=== PATIENT | male | born 1940 | race African-American/Black ===

== ENCOUNTER 2017-07-16 07:28 | Inpatient (IN) | payer OTHER ==
[~2017-07-16] VITALS: Ht 180.3 cm; Wt 121.2 kg
--- NOTE | ~2017-07-16 | HC ---
[facility] [place] [place] [address] CONSULTATION Name: EMILY ACE [facility] Room #: 359-P ADM IN M.R.#: [id number] Admission: 07/16/17 Attend Phys: Prudencio Aguero DO Discharge: Date of : 38 Report #: [id number] THIS REPORT FOR: //name// CC: Danis Gonzalez DATE OF SERVICE: 07/21/2017 CHIEF COMPLAINT: Right foot ulcers and osteomyelitis. HISTORY OF PRESENT ILLNESS: This is a 77-year-old gentleman with a history of diabetes and end-stage renal disease with a nonhealing foot ulcer, admitted to the hospital on 07/16/2017. PAST MEDICAL HISTORY: Significant for diabetes, hypertension, coronary artery disease, hyperlipidemia, parathyroid surgery, remote prostate cancer. SOCIAL HISTORY: The patient lives in a nursing facility. FAMILY HISTORY: Diabetes and hypertension. REVIEW OF SYSTEMS: As above. Orthopedics was consulted to evaluate his foot. MEDICATIONS: Cephalexin, atorvastatin, carvedilol, Byetta, insulin. PHYSICAL EXAMINATION: On examination of the patient's right foot, he has a large ulcer over his fifth metatarsal extending to his fourth metatarsal head region. He has a significant amount of edema. It is malodorous. Unable to detect a capillary refill. Also on exam, he has an ulcer over his medial heel, which is grade 2 superficial. LABORATORY DATA AND IMAGING: Apparently, the patient did have arteriogram yesterday with a tibioperoneal trunk peroneal artery stent placed. Cultures from his foot have noted gram-negative rods, Proteus mirabilis and skin mark. His last CBC notes a hemoglobin 9.6, hematocrit of 28.9, white count of 7.3. MRI scan notes osteomyelitis through the fourth and fifth metatarsal heads and proximal phalanges of the fourth and fifth toes. The heel notes the ulcer without changes of osteomyelitis. IMPRESSION: Right foot fourth and fifth metatarsal osteomyelitis. PLAN: Options were discussed at length with the patient. At this point, he is [facility] [address] [address] CONSULTATION Name: EMILY ACE [facility] Room #: 359-P [facility] IN M.R.#: [id number] Admission: 07/16/17 Attend Phys: Prudencio Aguero DO Discharge: Date of : 39 Report #: [id number] a candidate for a right foot fourth and fifth ray amputation. This was discussed with the patient. We will proceed in the near future. <ELECTRONICALLY SIGNED> By: Boo Samano MD 07/23/17 1531 0819 [id number] Boo Samano MD /nt
--- NOTE | ~2017-07-16 | HC ---
[facility] [place] [address] [place] [address] CONSULTATION Name: EMILY ACE [facility] Room #: 352-P ADM IN M.R.#: [id number] Admission: 07/16/17 Attend Phys: Prudencio Aguero DO Discharge: Date of : 39 Report #: [id number] THIS REPORT FOR: //name// CC: Danis Gonzalez DATE OF SERVICE: 07/17/2017 CHIEF COMPLAINT: Diabetic foot wound and infection of the right lower extremity. HISTORY OF PRESENT ILLNESS: This is a 77-year-old male patient, who I saw yesterday in the wound care clinic for the first time as a consultation. He has had ulceration to his right heel and right lateral foot for several months. He has some history of peripheral arterial disease as well as diabetes mellitus. The area has not been healing and there has been report of odor and drainage, and I was asked to see him with regard to wound care and these areas appeared to be infected and a probe to bone and hospitalization was felt appropriate for more aggressive evaluation and care. PAST MEDICAL HISTORY: Positive for diabetes mellitus, peripheral neuropathy, peripheral arterial disease, end-stage renal disease, requiring dialysis as well as history of coronary artery disease, hypertension, dyslipidemia, and history of glaucoma. He has a history of prostate cancer status post surgery and radiation. The patient lives in a prison, denies alcohol or tobacco use. FAMILY HISTORY: Noncontributory. REVIEW OF SYSTEMS: CONSTITUTIONAL: The patient denies fever, chills or weight loss. NEUROLOGICAL: The patient does complain of some lower extremity weakness. He has a motorized wheelchair. He does complain of neuropathy of the lower extremities. ENT: The patient denies earache, nasal drainage, or sore throat. CARDIOVASCULAR: The patient denies chest pain or palpitations or diaphoresis. PULMONARY: The patient denies cough or shortness of breath. GASTROINTESTINAL: The patient denies nausea, vomiting or abdominal pain. ORTHOPEDIC: The patient is aware of the ulceration on the right foot, but denies pain associated with this. Other systems in a 12-point review of systems are negative. PHYSICAL EXAMINATION: VITAL SIGNS: At this time include, pulse rate of 80, respiration rate 17, blood pressure 114/60, and temperature 98.1. [address] [address] CONSULTATION Name: EMILY ACE [facility] Room #: [address] [place] [address] IN M.R.#: [id number] Admission: 07/16/17 Attend Phys: Prudencio Aguero DO Discharge: Date of : 39 Report #: [id number] GENERAL: This is a chronically ill-appearing male patient, who appears to be in no distress. HEENT: Normocephalic clear. NECK: Supple. CHEST: Clear. HEART: Regular, bowel sounds present. EXTREMITIES: Examination of the lower extremities demonstrates diminished distal pulses. He has 2-3+ edema bilaterally. There is a very large area of ulceration with some necrotic tissue involving the right posterior medial heel. He also has a smaller ulceration involving the lateral aspect of the right foot at the fifth MTP region. There is foul smelling drainage and some discoloration that extends more medially on the plantar surface of the foot. I can palpate bone deep within the base and probed bone. I believe near the fifth MTP and possibly close to the fourth MTP as well. LABORATORY DATA: Includes sodium 133, potassium 5.0, chloride 98, CO2 of 25, BUN 48, creatinine 8.3, and glucose 155. Albumin is 2.4. CRP is quite elevated at 92.7. White blood cell count 9.4, hemoglobin 9.2, hematocrit 28.1 and platelet count 233,000. Differential is 58% neutrophils, 26 lymphocytes, 10 monocytes, 3 eosinophils, and sed rate is quite elevated at 130. TSH is also elevated at 16. Hemoglobin A1c is pending. Arterial Doppler of the lower extremity demonstrates monophasic flow suggestive of proximal area of stenosis in the distal aorta right iliac artery. Absent flow in the posterior tibial artery with high grade proximal stenosis, dampened flow in the dorsalis pedis and anterior tibial arteries as well noted. MRI of the foot is ordered and is pending. CLINICAL IMPRESSION: 1. Diabetic foot ulceration involving the right foot including the heel on the lateral fifth MTP region. 2. suspected underlying osteomyelitis. 3. Peripheral arterial disease. 4. End-stage renal disease, requiring hemodialysis. 5. Diabetes with peripheral neuropathy. RECOMMENDATIONS: At this point in time, I think would be appropriate with hopes that he would be amenable to percutaneous intervention. The patient likely has osteomyelitis, but we will await the MRI report. He will probably need surgical debridements including likely bony debridements; however, I think it would be appropriate to address his arterial inflow before any surgical injury would occur. The patient is being seen by Dr. Anne, cultures have been obtained from the wound base and are pending at this time. <ELECTRONICALLY SIGNED> By: Johny Leung MD 07/22/17 1419 1608 1358 Johny Leung MD /nt
--- NOTE | ~2017-07-16 | EKG ---
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
--- NOTE | ~2017-07-16 | H ---
[facility] [place] [place] [address] HISTORY AND PHYSICAL Name: EMILY ACE Room #: 407-P ADM IN M.R.#: [id number] Admission: 07/16/17 Attend Phys: Prudencio Aguero DO Discharge: Date of : 39 Report #: [id number] THIS REPORT FOR: //name// CC: Danis Gonzalez DATE OF SERVICE: 07/16/2017 CHIEF COMPLAINT: Nonhealing right foot ulcer. HISTORY OF PRESENT ILLNESS: The patient is a 77-year-old man with longstanding history of diabetes mellitus type 2, as well as multiple other medical problems, who was referred here from wound care clinic for inpatient treatment of nonhealing right lower extremity wound. The patient states that he has had the wound for last 3 months or so. He denies any pain. He has no fever, and does not have any systemic symptoms. The patient considers his diabetes is well controlled. He states that his hemoglobin A1c was 6.0 recently. He has peripheral neuropathy, and he has significantly diminished sensation in lower extremities. He denies peripheral vascular disease. The patient also has end-stage renal disease, and he is on hemodialysis 3 days a week, Mondays, Wednesdays and Fridays. He reports compliance to his dialysis regimen. The patient also has history of coronary artery disease. He had coronary artery bypass grafting surgery in 2000, as well as coronary artery stenting several times, most recent in November of this year. He is currently chest pain free. PAST MEDICAL HISTORY: 1. Diabetes mellitus type 2, treated with insulin, recent hemoglobin A1c reportedly 6%. 2. End-stage renal disease. 3. Coronary artery bypass grafting surgery in 2000, status post stents, most recent in November of this year. 4. Hypertension. 5. Dyslipidemia. 6. DJD. 7. Glaucoma. 8. Hypothyroidism, post-surgical 9. History of prostate cancer, status post surgery and radiation. CURRENT MEDICATIONS: Reviewed and documented in the patient's chart. [address] [address] HISTORY AND PHYSICAL Name: EMILY ACE [facility] Room #: [address] [place] [address] IN M.R.#: [id number] Admission: 07/16/17 Attend Phys: Prudencio Aguero DO Discharge: Date of : 39 Report #: [id number] SOCIAL HISTORY: The patient lives at the halfway. He does not smoke cigarettes and does not drink alcohol. FAMILY HISTORY: Reviewed and not pertinent to the patient's current condition. REVIEW OF SYSTEMS: As above in HPI section, all others negative. PHYSICAL EXAMINATION: GENERAL: The patient is an elderly man who is in no apparent distress. VITAL SIGNS: Currently is not available, and being obtained during this dictation. HEENT: Pupils are equal. Eye movements are normal. The patient has anicteric sclerae. NECK: Supple. Thyroid gland is absent surgically. The patient has no neck lymphadenopathy. He has no JVD. Carotid bruits are not appreciated. RESPIRATORY: Chest moves symmetrically with breathing. LUNGS: Clear to auscultation bilaterally. CARDIOVASCULAR: The patient has regular rhythm and rate. He has distant S1 and S2. I cannot auscultate murmurs, gallops or rubs. GASTROINTESTINAL: Abdomen is soft, slightly distended and nontender. Bowel sounds are present. MUSCULOSKELETAL: The patient has no joint deformities. Range of motion is normal. His right lower extremity is swollen, 3+ pitting edema. Left lower extremity has no swelling. Right foot is bandaged. NEUROLOGIC: The patient is alert and oriented x3. His examination is grossly nonfocal. SKIN: No skin lesions are seen, other than wound on the right foot, that is bandaged. LABS: No labs are available for review at this time. ASSESSMENT AND PLAN: 1. Chronic right lower extremity diabetic wound. We will obtain MRI, to evaluate for osteomyelitis. We will also obtain arterial Doppler. Infectious disease specialist and wound care team are consulted. Input is very much appreciated. 2. Right lower extremity swelling. Relatively new. Obtain Doppler ultrasound, to rule out deep venous thrombosis. 3. Diabetes mellitus type 2. Continue outpatient regimen and monitor blood sugars closely. 4. Hypertension. Acceptable control. Current blood pressure is 123/52. Heart rate is 76, respiration is 22, and temperature is 97.4. [address] [address] HISTORY AND PHYSICAL Name: EMILY ACE [facility] Room #: 407-P ADM IN M.R.#: [id number] Admission: 07/16/17 Attend Phys: Prudencio Aguero DO Discharge: Date of : 39 Report #: [id number] 5. End-stage renal disease. Church Official is consulted. The patient is on dialysis on Mondays, Wednesdays, and Fridays. <ELECTRONICALLY SIGNED> By: Nate Woods MD 07/17/17 1454 1828 01 Nate Woods MD /nt
--- NOTE | ~2017-07-16 | 2DMMODE ---
[facility] [address] [place] [address] 2 D/M-MODE ECHOCARDIOGRAM Name: EMILY ACE [facility] Room #: 352-P ADM IN M.R.#: [id number] Admission: 07/16/17 Attend Phys: Prudencio Aguero, Discharge: Date of : 38 Date of Service: 07/23/17 1015 Report #: [id number] THIS REPORT FOR: //name// APPROVED REPORT Study performed: 07/23/2017 08:45:01 EXAM: Comprehensive 2D, Doppler, and color-flow Echocardiogram Patient Location: Bedside Room #: [facility] Status: routine BSA: 2.38 HR: 83 bpm BP: 119/64 mmHg Other Information Study Quality: Fair Indications Diabetes Dyspnea CAD Hypertension/HDD 2D Dimensions IVC: 19.00 mm Volumes Left Atrial Volume (Systole) Single Plane 4CH: 37.44 mL Single Plane 2CH: 79.87 mL LA ESV Index: 25.00 mL/m2 Aortic Valve AoV Peak Charly.: 1.25 m/s AO Peak Gr.: 6.20 mmHg LVOT Max P.39 mmHg LVOT Max V: 0.77 m/s Mitral Valve E/A Ratio: 0.9 MVA Planimetry: 1587.32 mm2 MV Decel. Time: 199.24 ms MV E Max Charly.: 0.81 m/s MV A Charly.: 0.94 m/s MV PHT: 57.78 ms IVRT: 107.27 ms [facility] [address] [place] [address] 2 D/M-MODE ECHOCARDIOGRAM Name: EMILY ACE [facility] Room #: 352-P ADM IN M.R.#: [id number] Admission: 07/16/17 Attend Phys: Prudencio Aguero, Discharge: Date of : 38 Date of Service: 07/23/17 1015 Report #: [id number] Tricuspid Valve TR Peak Charly.: 2.52 m/s TR Peak Gr.: 25.33 mmHg PA Pressure: 30.00 mmHg Left Ventricle The left ventricle is normal size. Possible inferolateral wall hypokinesis. There is normal left ventricular wall thickness. Left ventricular systolic function is moderately decreased. LVEF is 45%. Grade I - abnormal relaxation pattern. Right Ventricle Right ventricle is not well visualized. Atria The left atrium size is normal. Right atrium is at the upper limits of normal. Aortic Valve The aortic valve is not well visualized. Aortic valve is calcified. No aortic regurgitation is present. There is no aortic valvular stenosis. Mitral Valve The mitral valve is normal in structure. Mild mitral regurgitation. No evidence of mitral valve stenosis. Tricuspid Valve The tricuspid valve is normal in structure. There is trace to mild tricuspid regurgitation. There is no pulmonary hypertension. Estimated [id number]. Pulmonic Valve Pulmonic valve is not well visualized. Great Vessels The aortic root is normal in size. IVC is normal in size and collapses >50% with inspiration. Pericardium There is no pericardial effusion. <Conclusion> Very limited study; suboptimal imaging Left ventricular systolic function possibly moderately decreased. [facility] [address] [place] [address] 2 D/M-MODE ECHOCARDIOGRAM Name: EMILY ACE [facility] Room #: 352-P ADM IN M.R.#: [id number] Admission: 07/16/17 Attend Phys: Prudencio Aguero, Discharge: Date of : 39 Date of Service: 07/23/17 1015 Report #: [id number] Possible inferolateral wall hypokinesis. LVEF is 45%. Grade I - abnormal relaxation pattern. The aortic valve is not well visualized. Aortic valve is calcified. There is no aortic valvular stenosis or insufficiency. The mitral valve is normal in structure. Mild mitral regurgitation. There is no pericardial effusion. <ELECTRONICALLY SIGNED> By: Marvin Flores MD, FACC 07/23/175 14 Marvin Flores MD, FACC /INF
--- NOTE | ~2017-07-16 | HC ---
[facility] [place] [address] [place] [address] CONSULTATION Name: EMILY ACE N[facility] Room #: 407-P ADM IN M.R.#: [id number] Admission: 07/16/17 Attend Phys: Prudencio Aguero DO Discharge: Date of : 39 Report #: [id number] THIS REPORT FOR: //name// CC: Danis Gonzalez MD INFECTIOUS DISEASE CONSULTATION ATTENDING PHYSICIAN: Nate Woods MD REASON FOR CONSULTATION: Right diabetic foot infection. HISTORY OF PRESENT ILLNESS: The patient is a 77-year-old -[place] man with long-standing history of diabetes mellitus and renal failure, on hemodialysis, who relates having had a right diabetic foot infection for the last 3 months. The patient tells me he has been to [facility] as well as [facility]. Apparently, he was visiting with the wound care clinic at [facility] yesterday and he is hospitalized with a necrotic foul-smelling right diabetic foot infection. 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 He does not know the name of his current carbon paper coating machine setter. The patient is a bit reluctant to get much information and he tells me he does not remember what he was advised to do about the right diabetic foot infection either at [facility], [facility] or at [facility]. PAST MEDICAL HISTORY: Diabetes mellitus for many years; end-stage renal disease, on hemodialysis through a left arm AV fistula; previous history of coronary artery bypass grafting in 2000 status post stenting; peripheral vascular disease requiring revascularization of right lower extremity; history of prostate cancer in 1996 or 2006, the patient unsure for which he had received surgery and radiation therapy. The patient had glaucoma as well as post-surgical hypothyroidism. SOCIAL HISTORY: Resides at the local prison. No tobacco. No alcohol. REVIEW OF SYSTEMS: The patient is rather reluctant to provide much information consequently ____ limited that. DRUG ALLERGIES: APPEARS TO BE A HISTORY OF PENICILLIN AND CODEINE ALLERGY WITH PENICILLIN, HE HAS HIVES. MEDICATIONS: The patient is currently on treatment with topical sodium hypochlorite, cinacalcet, cholecalciferol, docusate, fluticasone propionate, carvedilol, pantoprazole, levothyroxine, latanoprost ophthalmic drops, insulin [address] [address] CONSULTATION Name: EMILY ACE [facility] Room #: 407-P [facility] IN M.R.#: [id number] Admission: 07/16/17 Attend Phys: Prudencio Aguero DO Discharge: Date of : 39 Report #: [id number] lispro per sliding scale, insulin detemir, atorvastatin, pregabalin, p.r.n. glucose, glucagon. PHYSICAL EXAMINATION: GENERAL: A well-developed, obese man, not toxic looking. VITAL SIGNS: Temperature 98.1, pulse 80, respirations 17, BP 114/63, height 5 feet 11 inches, and weight 270 pounds. HEENMT: Pupils are reactive, arcus cornealis. Mouth: Upper and lower plates. NECK: Supple. LUNGS: Clear. HEART: S1 and S2. No gallop or murmur. ABDOMEN: Infraumbilical surgical scar, possible from prostate surgery, no masses or megaly. GENITOURINARY: Deferred. RECTAL: Deferred. EXTREMITIES: The dressings of the right foot were removed and he has foul-smelling ulcerations on the lateral aspect of right foot with necrotic tissue as well as a decubitus ulceration on the right heel. I do not feel bone in that area. Surgical scar, possibly revascularization of right lower extremity. 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 NEUROLOGIC: Grossly within normal limits. LABORATORY DATA: Sodium 132, potassium 5, BUN 48, creatinine 8.3, and glucose 155. Albumin 2.4 g/dL. WBC 9400; hemoglobin 9.2 g/dL; platelets 233,000; the white blood cell count differential was fairly normal yesterday. TSH elevated yesterday. Hemoglobin A1c pending. RADIOLOGY EVALUATION: Venous Doppler of lower extremities negative for DVT. Arterial Doppler of lower extremity revealed monophasic flow suggesting proximal ____ stenosis in the distal aorta or right iliac artery. Absent flow, posterior tibial artery suggesting posterior tibial artery occlusion or very high-grade proximal stenosis. Dampening flow, dorsalis pedis and anterior tibialis suggesting diffuse atherosclerosis. MRI foot is pending. ASSESSMENT: 1. Right diabetic foot infection with necrotic tissue and foul order, suspect anaerobic infection, must rule out osteomyelitis. 2. Significant peripheral vascular disease. 3. Diabetes mellitus with its multiple complications. 4. Renal failure, on hemodialysis. 5. Malnutrition. 6. Anemia of chronic disease. SUGGESTIONS: Recommend proceed with initial workup, which possibly already repeated and done at [facility], [facility] and [facility]. We will start vancomycin and meropenem. I believe the patient will benefit from a BKA, but I [facility] [address] [place] [address] CONSULTATION Name: EMILY ACE Room #: 407-P ADM IN M.R.#: [id number] Admission: 07/16/17 Attend Phys: Prudencio Aguero DO Discharge: Date of : 38 Report #: [id number] have not discussed this with him since I suspect the multiple hospitalizations ____ are related to the fact that he did not like the previous recommendation of amputation. We will discuss situation with Dr. Kali Gonzalez or Dr. Johny Leung whoever had seen this patient at the wound care center. Per Dr. Woods, thank you for requesting my suggestions in the care of your patient. <ELECTRONICALLY SIGNED> By: Rai Anne MD 07/19/17 0628 1141 0325 Rai Anne MD /nt
--- NOTE | ~2017-07-16 | HC ---
[facility] [address] [place] [address] CONSULTATION Name: EMILY ACE NESS Room #: 359-P [facility] IN M.R.#: [id number] Admission: 07/16/17 Attend Phys: Prudencio Aguero DO Discharge: 07/24/17 Date of : 38 Report #: [id number] THIS REPORT FOR: //name// CC: Danis Sepulvedahens PRIMARY PHYSICIAN: Danis Peacock MD REFERRAL PHYSICIAN: Prudencio Aguero DO REASON FOR REFERRAL: Abnormal chest CT. HISTORY OF PRESENT ILLNESS: The patient is a 77-year-old -[place] male who was admitted with a non-healing right foot ulcer. He was admitted on 07/16/2017. The patient had a chest x-ray, which showed subtle abnormalities. He then underwent a CT chest showing questionable nodule. A pulmonary consultation was requested. Since admission, the patient had undergone right iliac artery stent placement for stenosis, amputation involving the right fourth and fifth toes. He has been seen by infectious disease and wound care for his chronic wounds. He is felt to have osteomyelitis. Otherwise, he is awake and alert. Denies any dyspnea or chest pain. PAST MEDICAL HISTORY: Notable for end-stage renal disease, undergoing hemodialysis; diabetes mellitus type 2, coronary artery disease, status post coronary artery bypass surgery in 2000, status post stent placement, peripheral vascular disease as mentioned above, hypertension, dyslipidemia, degenerative joint disease, glaucoma, hypothyroidism, status post thyroidectomy, prostate cancer, undergoing surgery along with radiation therapy. ALLERGIES: CODEINE AND PENICILLIN, reactions not specified. MEDICATIONS: List reviewed. FAMILY HISTORY: Noncontributory. SOCIAL HISTORY: The patient resides in a longterm. There is no history of tobacco or alcohol use. REVIEW OF SYSTEMS: As mentioned above, otherwise notable for sedentary lifestyle due to his chronic bilateral foot wound. He is also dealing with debility and weakness. Otherwise, 10-point system review negative. PHYSICAL EXAMINATION: GENERAL: He is awake and alert, in no apparent distress. [facility] [address] [place] [address] CONSULTATION Name: EMILY ACE [facility] Room #: 359-[facility] IN M.R.#: [id number] Admission: 07/16/17 Attend Phys: Prudencio Aguero DO Discharge: 07/24/17 Date of : 38 Report #: [id number] VITAL SIGNS: Temperature is 98.4 degrees Fahrenheit, pulse is 82, respiratory rate is 20, blood pressure 127/68 mmHg, and saturation is 100%. HEENT: Normocephalic and atraumatic. NECK: Supple without any lymphadenopathy or thyromegaly. CHEST: Breath sounds are clear bilaterally without any rales or wheezes. CARDIOVASCULAR: Normal S1, S2. There are no murmurs or gallop. There is no JVD. There is no carotid bruit. Pulses are 2+/4+ bilaterally. ABDOMEN: Soft, nontender, no organomegaly or masses felt. GENITOURINARY: Deferred. RECTAL: Deferred. EXTREMITIES: No cyanosis or clubbing, 1+ edema is noted bilaterally. Both foot are dressed with wound dressing. LABORATORY DATA: CT chest shows increased pulmonary artery markings. Questionable peripheral mucus plugging seen in the left upper lobe area. Otherwise, the rest of the lung yung are unremarkable. There is mild wedge shaped atelectasis seen in the left lower lobe. Sodium 132, potassium 5.0, chloride 94, CO2 of 27, BUN is 33, and creatinine is 5.8. WBC 9900, hemoglobin is 7.4, platelets normal. Troponin 3.0. Arterial blood gas from 07/22/2017, revealed pH 7.38, pCO2 of 38, pO2 of 109. IMPRESSION: 1. Abnormal chest CT. Review of the chest CT and suggested abnormality likely suggests small mucus plugging. No evidence of lung nodule noted. Atelectasis is also noted in the left lower lobe. 2. Non-healing diabetic foot wounds status post surgery as mentioned above. 3. Peripheral artery disease, status post right iliac artery stent placement. 4. Recent acute respiratory insufficiency, resolved. 5. Coronary artery disease, status post coronary artery bypass surgery. 6. Diabetes mellitus type 2. 7. End-stage renal disease, on hemodialysis. 8. Hypothyroidism. 9. Hypertension. 10. Generalized debility and weakness due to non-healing foot ulcers. RECOMMENDATION: No further recommendation needed from pulmonary standpoint. Mucus plugging should resolve with increased activity, chest physiotherapy. Please call if there are any further problems. Otherwise, we will sign off. Thank you for the consultation. <ELECTRONICALLY SIGNED> By: Enmanuel Powell MD 07/27/17 1920 [id number] 33 Enmanuel Powell MD /nt
--- NOTE | ~2017-07-16 | O ---
[facility] [address] [place] [address] OPERATIVE REPORT Name: EMILY ACE [facility] Room #: 359-P ADM IN M.R.#: [id number] Admission: 07/16/17 Attend Phys: Prudencio Aguero DO Discharge: Date of : 38 Report #: [id number] THIS REPORT FOR: //name// CC: Danis Gonzalez DATE OF SERVICE: 07/21/2017 PREOPERATIVE DIAGNOSIS: Right foot fourth and fifth metatarsal osteomyelitis. POSTOPERATIVE DIAGNOSIS: Right foot fourth and fifth metatarsal osteomyelitis. PROCEDURE: Right foot fourth and fifth ray amputation. SURGEON: Boo Samano MD BANQUET STEWARD: LARISSA Garcia ANESTHESIA: Local MAC. ESTIMATED BLOOD LOSS: 10 mL DRAINS: None. COMPLICATIONS: None. DESCRIPTION OF PROCEDURE: The patient brought to the operating room where he had already been anesthetized with local anesthesia by anesthesiologist. His right lower extremity was then prepped and draped in a sterile manner. A racquet-shaped incision was then made about the fifth metatarsal laterally extending distally across the fourth and fifth toes. There was a large wound plantar laterally precluding an excellent flap; however, exposure of the fourth and fifth metatarsals was made with a Free elevator and a sagittal saw was then used to resect the fifth metatarsal along with its ____ toe and as well the fourth metatarsal with its ____ toe. Wound closure was difficult particularly distally and the third metatarsal was resected as well leaving the third toe. The wound was irrigated copiously and closed with 2-0 nylon suture leaving approximately 3-4 cm to be packed. The wound was then packed with sterile gauze and dressed. There were no complications from the procedure. The patient went to the recovery room without incident. <ELECTRONICALLY SIGNED> By: Boo Samano MD 07/23/17 1531 [id number] Boo Samano MD /nt
--- NOTE | ~2017-07-16 | HC ---
[facility] [address] [place] [address] CONSULTATION Name: EMILY ACE [facility] Room #: 352-P ADM IN M.R.#: [id number] Admission: 07/16/17 Attend Phys: Prudencio Aguero DO Discharge: Date of : 38 Report #: [id number] THIS REPORT FOR: //name// CC: Danis Gonzalez REASON FOR THE CONSULTATION: End-stage renal disease. REASON FOR THE PRESENTATION: Nonhealing foot ulcer. HISTORY OF PRESENT ILLNESS: The patient is a 77-year-old with diabetes mellitus, hypertension, end-stage renal disease, maintained on hemodialysis every Thursday, Thursday and Thursday. He dialyzes with [facility] in [place] with one of our group. He had been battling with the right foot ulcer for the last few months. Wound care has been following him. They advised him to come to the hospital for further evaluation and management. He has no fever. He tells me that he is taking p.o. antibiotics. He does not really recall the name of the antibiotics. From the renal perspective, the patient is a dialysis patient for another group and he dialyzes as I stated on Thursday, Thursday, Thursday, utilizing a left AV fistula. He was started on dialysis 6 years ago. His end-stage renal disease was attributed to be due to diabetes mellitus. PAST MEDICAL AND SURGICAL HISTORY: 1. End-stage renal disease. 2. Diabetes mellitus. 3. Hypertension. 4. Coronary artery disease, post coronary artery bypass graft. 5. Hyperlipidemia. 6. Parathyroid surgery. 7. Remote history of prostate cancer. SOCIAL HISTORY: He resides in a nursing facility. No drug or alcohol abuse. FAMILY HISTORY: He stated diabetes and hypertension runs in his family. REVIEW OF SYSTEMS: GENERAL: No fever or chills. CARDIOVASCULAR: No chest pain or palpitation. PULMONARY: No cough or hemoptysis. GASTROINTESTINAL: No nausea or vomiting. GENITOURINARY: Minimal urine. MUSCULOSKELETAL: Right foot ulcer. [facility] [address] [place] [address] CONSULTATION Name: EMILY ACE [facility] Room #: 352-P [facility] IN M.R.#: [id number] Admission: 07/16/17 Attend Phys: Prudencio Aguero DO Discharge: Date of : 38 Report #: [id number] MEDICATIONS: On presentation, the patient was on the followin. Cephalexin. 2. Atorvastatin. 3. Carvedilol. 4. Byetta. 5. Insulin. PHYSICAL EXAMINATION: GENERAL: Alert, oriented, in no apparent distress. VITAL SIGNS: Temperature 36.7, blood pressure 114/63. HEAD AND NECK: No jugular venous distention, no bruit, no thyromegaly. CHEST: Clear to auscultation bilaterally. CARDIOVASCULAR: Regular with no rub detected. ABDOMEN: Soft, nontender with no hepatosplenomegaly. LOWER EXTREMITIES: Essentially no edema. Dressing is applied on the right foot. I did not expose the wound. LABORATORY VALUES: Reviewed. Hemoglobin is 9.2. Chemistry from today revealed a BUN of 48 and a creatinine of 8.3. TSH was elevated at 16.1. ASSESSMENT, IMPRESSION AND PLAN: 1. End-stage renal disease. 2. Right lower extremity diabetic foot. 3. Diabetes mellitus. 4. Hypertension. 5. Hypothyroidism. 6. MRI is pending to evaluate for osteomyelitis. 7. Infectious Disease consultations. 8. Dialysis will be arranged every Thursday, Thursday and Thursday. 9. Continue with his blood sugar medications. 10. Continue with the blood pressure medications. 11. Further plans will be dictated after obtaining the MRI and ruling out osteomyelitis. <ELECTRONICALLY SIGNED> By: Odette Richard MD 07/22/17 1000 [id number] Odette Richard MD /nt
--- NOTE | ~2017-07-16 | S ---
[facility] [place] [address] [place] [address] SURGICAL PATH RPT PROCEDURE Name: EMILY ACE Room #: 359-P DIS IN M.R.#: [id number] Admission: 07/16/17 Date of : 38 Discharge: 07/24/17 Report #: [id number] Path Case #: [id number] PATHOLOGY REPORT COLLECTION DATE: 07/21/2017 RECEIVED DATE: 07/22/2017 SUBMITTING PHYS: Dr. Boo Samano OTHER PHYS: Dr. Kali Aguero SPECIMEN(S) RECEIVED: A.Right foot 4th and 5th ray amputation * * * * * * * * * * * * FINAL DIAGNOSIS: Right foot 4th and 5th ray, amputation: - Gangrenous necrosis associated with ulceration as well as marked acute inflammation extending into underlying subcutaneous tissues. - Bone surgical margin at 5th toe showing acute inflammation along with bone remodeling. - Bone surgical margin at 4th toe viable and unremarkable. - Viable squamous epithelium identified at skin surgical margin. (KM:edwin; 07/27/2017) PATHOLOGIST: Katarina Bowman M.D. REPORT ELECTRONICALLY SIGNED BY: Katarina Bowman M.D. DATE/TIME: 07/27/2017 16:07 * * * * * * * * * * * * GROSS PATHOLOGY: The specimen is received in formalin, labeled "Emily Ace and right foot fourth and fifth ray amputation" and consists of a transmetatarsal amputation of the fourth and fifth toes of right foot. The specimen measures 11.0 cm proximal-distal by 5.5 cm plantar-dorsal by 5.1 cm medial-lateral. The specimen is significant for a large ulcerated and necrotic lesion at the distal lateral aspect, extending towards the plantar aspect and measuring 6.2 x 4.4 cm. The lesion clears the nearest cutaneous margin by 0.3 cm or greater. There is hyperkeratotic skin at the distal lateral and plantar aspect that grossly involves the cutaneous margin. The remaining skin is pigmented with no other discrete lesions identified. The fourth and fifth metatarsal bone margins are roughened and slightly smooth. The bone margins are inked blue. The soft tissue/cutaneous margins are inked black. The toes are [address] [address] SURGICAL PATH RPT PROCEDURE Name: EMILY ACE [facility] Room #: 359-P [facility] IN M.R.#: [id number] Admission: 07/16/17 Date of : 38 Discharge: 07/24/17 Report #: [id number] Path Case #: [id number] . There is marked underlying soft tissue necrosis deep to the ulcerated lesion at lateral distal aspect. The bones of the fifth toe are markedly brittle. The bones of the fourth toe are solid. No soft tissue masses are identified. A1 bone margin of fifth toe, perpendicular, decal A2 bone margin of fourth toe, perpendicular, decal A3 transverse section of fifth toe, decal A4-A6 cutaneous margin (IRINA; 07/23/2017) CLINICAL HISTORY: Nonhealing diabetic foot ulcers INITIAL CPT CODE(S): A; 18468, 31347 Professional services performed under supervision of [facility] Radio Repairer at [address] [place] [address]. Technical services performed under supervision of [facility] at [address] [place] [address], [address] [address]. [facility] [address] [place] [address] PHONE: [phone] DIRECTOR: Fox Anderson M.D. * * * END OF REPORT * * *
[2017-07-16] MEDS ORDERED: FLONASE 0.05%50 MCG NASAL (18:14)
[2017-07-16] MEDS ORDERED: HYDROCODONE-AP1 EAC6 PO (18:15)
[2017-07-16] MEDS ORDERED: NOVOLOG100 UNIT/1 SUBQ (18:16)
[2017-07-16] MEDS ORDERED: LEVEMIR100 UNIT/1 SUBQ (18:17)
[2017-07-16] MEDS ORDERED: XALATAN2.5 ML OPHTHALMIC (18:18)
[2017-07-16] MEDS ORDERED: LEVOTHYROXINE200 MC1 PO (18:19)
[2017-07-16] MEDS ORDERED: PROTONIX40 M2 PO (18:20)
[2017-07-16] MEDS ORDERED: POVIDONE IODINE TOP (18:21)
[2017-07-16] MEDS ORDERED: LYRICA 50 MG50 MG PO (18:22)
[2017-07-16] MEDS ORDERED: COLACE100 MG PO (18:23)
[2017-07-16] MEDS ORDERED: DAKIN'S473 M1 TOP (18:24)
[2017-07-16] MEDS ORDERED: ARANESP 4040 MCG/0.4 SUBQ (18:25)
[2017-07-16] MEDS ORDERED: LIPITOR 20 MG T20 M1 PO (18:25)
[2017-07-16] MEDS ORDERED: CARVEDILOL6.25 MG PO (18:26)
[2017-07-16] MEDS ORDERED: VITAMIN D2000 UNIT PO (18:26)
[2017-07-16 18:27] VITALS: BP 123/52
[2017-07-16] MEDS ORDERED: SENSIPAR90 MG PO (18:27)
[2017-07-16] MEDS ORDERED: KEFLEX500 MG PO (18:31)
[2017-07-16 20:19] VITALS: BP 123/56
[2017-07-16 23:05] LABS: HEMATOCRIT 29.2 % (42.0-52.0); HEMOGLOBIN 9.5 gm/dL (14.0-18.0); MCH 30.7 pg (26.0-34.0); MCHC 32.7 g/dL (28.0-37.0); MCV 94.1 fL (80.0-100.0); RBC 3.1 mil/uL (4.50-6.00); RDW 17.4 % (10.5-14.5); WBC 9.5 thou/uL (4.0-11.0)
[2017-07-16 23:17] LABS: ALBUMIN 2.4 g/dL (3.4-5.0); CALCIUM 9.2 mg/dL (8.5-10.1); CREATININE 8.5 mg/dL (0.7-1.3); POTASSIUM 4.9 mmol/L (3.5-5.1); TOTAL BILIRUBIN 0.2 mg/dL (<0.1-1.0); TOTAL PROTEIN 7.5 g/dL (6.4-8.2)
[2017-07-17] VITALS (14 sets, daily range): BP systolic 109–171; BP diastolic 42–90
[2017-07-17 03:42] LABS: ABSOLUTE NEUTROPHILS 5.5 thou/uL (1.4-8.2); BASOPHILS 1.2 % (0.0-2.0); EOSINOPHILS 3.3 % (0.0-3.0); HEMATOCRIT 28.1 % (42.0-52.0); HEMOGLOBIN 9.2 gm/dL (14.0-18.0); LYMPHOCYTES 26.7 % (24.0-44.0); MCH 30.9 pg (26.0-34.0); MCHC 32.8 g/dL (28.0-37.0); MCV 94.1 fL (80.0-100.0); MONOCYTES 10.3 % (1.0-8.0); PLATELET COUNT 233 thou/uL (150-400); POLYS 58.5 % (36.0-66.0); RBC 2.99 mil/uL (4.50-6.00); RDW 17.4 % (10.5-14.5); WBC 9.4 thou/uL (4.0-11.0)
[2017-07-17 03:54] LABS: CALCIUM 9.3 mg/dL (8.5-10.1); CREATININE 8.3 mg/dL (0.7-1.3)
[2017-07-17 04:04] LABS: MANUAL DIFF NO
[2017-07-17 17:09] LABS: GLYCOHEMOGLOBIN (HGB A1C) 5.8 % (4.8-5.6)
[2017-07-18 05:40] LABS: ABSOLUTE NEUTROPHILS 4.2 thou/uL (1.4-8.2); BASOPHILS 0.8 % (0.0-2.0); HEMATOCRIT 29.2 % (42.0-52.0); HEMOGLOBIN 9.6 gm/dL (14.0-18.0); MANUAL DIFF NO; MCH 30.8 pg (26.0-34.0); MCHC 32.7 g/dL (28.0-37.0); MONOCYTES 11.3 % (1.0-8.0); PLATELET COUNT 216 thou/uL (150-400); POLYS 54.9 % (36.0-66.0); RBC 3.11 mil/uL (4.50-6.00); WBC 7.7 thou/uL (4.0-11.0)
[2017-07-18 05:50] LABS: CALCIUM 9.5 mg/dL (8.5-10.1); POTASSIUM 4.4 mmol/L (3.5-5.1)
[2017-07-18 06:02] LABS: CREATININE 6.9 mg/dL (0.7-1.3)
[2017-07-18 08:00] VITALS: BP 116/63
[2017-07-18 16:00] VITALS: BP 115/49
[2017-07-18 19:38] VITALS: BP 116/37
[2017-07-19 03:43] VITALS: BP 129/71
[2017-07-19 04:31] LABS: ABSOLUTE NEUTROPHILS 4.4 thou/uL (1.4-8.2); BASOPHILS 1.3 % (0.0-2.0); EOSINOPHILS 3.3 % (0.0-3.0); HEMATOCRIT 28.5 % (42.0-52.0); HEMOGLOBIN 9.2 gm/dL (14.0-18.0); LYMPHOCYTES 31.7 % (24.0-44.0); MCH 30.4 pg (26.0-34.0); MCHC 32.3 g/dL (28.0-37.0); MCV 94.3 fL (80.0-100.0); MONOCYTES 11.5 % (1.0-8.0); PLATELET COUNT 223 thou/uL (150-400); POLYS 52.2 % (36.0-66.0); RBC 3.03 mil/uL (4.50-6.00); RDW 17.2 % (10.5-14.5); WBC 8.3 thou/uL (4.0-11.0)
[2017-07-19 04:36] LABS: MANUAL DIFF NO
[2017-07-19 04:50] LABS: ALBUMIN 2.5 g/dL (3.4-5.0); CALCIUM 9.6 mg/dL (8.5-10.1); PHOSPHORUS 5.3 mg/dL (2.5-4.9); POTASSIUM 4.6 mmol/L (3.5-5.1)
[2017-07-19 04:53] LABS: CREATININE 8.5 mg/dL (0.7-1.3)
[2017-07-19 08:00] VITALS: BP 120/56
[2017-07-19 16:00] VITALS: BP 89/46
[2017-07-19 17:39] VITALS: BP 102/46
[2017-07-19 19:43] VITALS: BP 121/56
[2017-07-20 04:55] VITALS: BP 119/52
[2017-07-20 06:19] VITALS: BP 119/52
[2017-07-20 08:29] LABS: ABSOLUTE NEUTROPHILS 3.1 thou/uL (1.4-8.2); BASOPHILS 1.4 % (0.0-2.0); EOSINOPHILS 4.5 % (0.0-3.0); HEMATOCRIT 28.9 % (42.0-52.0); HEMOGLOBIN 9.6 gm/dL (14.0-18.0); LYMPHOCYTES 41.3 % (24.0-44.0); MCH 31.1 pg (26.0-34.0); MCHC 33.1 g/dL (28.0-37.0); MCV 93.9 fL (80.0-100.0); MONOCYTES 10.4 % (1.0-8.0); PLATELET COUNT 233 thou/uL (150-400); POLYS 42.4 % (36.0-66.0); RBC 3.08 mil/uL (4.50-6.00); RDW 17.4 % (10.5-14.5); WBC 7.3 thou/uL (4.0-11.0)
[2017-07-20 08:35] LABS: MANUAL DIFF NO
[2017-07-20 08:40] LABS: CALCIUM 9.1 mg/dL (8.5-10.1)
[2017-07-20 08:47] LABS: CREATININE 10.5 mg/dL (0.7-1.3)
[2017-07-20 20:03] VITALS: BP 109/51
[2017-07-21] VITALS (7 sets, daily range): BP systolic 87–124; BP diastolic 45–58
[2017-07-21 06:23] LABS: HEMATOCRIT 27.6 % (42.0-52.0); MCH 30.5 pg (26.0-34.0); MCHC 32.6 g/dL (28.0-37.0); MCV 93.8 fL (80.0-100.0); RBC 2.95 mil/uL (4.50-6.00); RDW 17.6 % (10.5-14.5)
[2017-07-21 06:39] LABS: CALCIUM 9.5 mg/dL (8.5-10.1); POTASSIUM 5.4 mmol/L (3.5-5.1)
[2017-07-21 06:40] LABS: CREATININE 8.8 mg/dL (0.7-1.3)
[2017-07-22] VITALS (7 sets, daily range): BP systolic 110–132; BP diastolic 51–63
[2017-07-22 07:49] LABS: ABG SAMPLE TYPE ARTERIAL; BE(vivo) -5.2 mmol/L (-2 to +3); HCO3 21.1 mmol/L (22.0-26.0); LACTATE 7.26 mmol/L (0.5-2.0); O2(CT) 9.1 mL/dL (15.0-23.0); O2Hb 63.5 % (92.0-98.0); PCO2 44.4 mmHg (35.0-45.0); PO2 38.1 mmHg (80.0-100.0); pH 7.294 (7.360-7.450); sO2 66.1 % (92.0-98.0); tCO2 22.4 mmol/L (24.0-30.0)
[2017-07-22 07:50] LABS: STICK SITE R.RADIAL
[2017-07-22 09:11] LABS: ABG SAMPLE TYPE ARTERIAL; BE(vivo) -2.1 mmol/L (-2 to +3); HCO3 22.6 mmol/L (22.0-26.0); LACTATE 2.07 mmol/L (0.5-2.0); O2(CT) 13.2 mL/dL (15.0-23.0); O2Hb 97.2 % (92.0-98.0); PCO2 38.5 mmHg (35.0-45.0); PO2 109.9 mmHg (80.0-100.0); pH 7.387 (7.360-7.450); tCO2 23.8 mmol/L (24.0-30.0)
[2017-07-22 09:12] LABS: STICK SITE R.RADIAL
[2017-07-22 09:13] LABS: ABG COMMENT BIPAP 14/6
[2017-07-22 10:47] LABS: HEMATOCRIT 27.9 % (42.0-52.0); MCH 29.9 pg (26.0-34.0); MCHC 32.1 g/dL (28.0-37.0); MCV 93.3 fL (80.0-100.0); PLATELET COUNT 230 thou/uL (150-400); RBC 2.99 mil/uL (4.50-6.00); RDW 17.2 % (10.5-14.5); WBC 21.2 thou/uL (4.0-11.0)
[2017-07-22 10:48] LABS: MANUAL DIFF YES
[2017-07-22 11:03] LABS: CALCIUM 9.8 mg/dL (8.5-10.1); CREATININE 5.8 mg/dL (0.7-1.3)
[2017-07-22 11:05] LABS: ABSOLUTE NEUTROPHILS 20.4 thou/uL (1.4-8.2); TOTAL CELL COUNT 100
[2017-07-22 11:06] LABS: ANISOCYTOSIS 1+
[2017-07-22 11:16] LABS: TROPONIN-I 1.4 ng/mL (<0.04-0.07)
[2017-07-23 04:55] VITALS: BP 119/64
[2017-07-23 08:15] VITALS: BP 124/68
[2017-07-23 11:46] VITALS: BP 95/55
[2017-07-23 20:00] VITALS: BP 129/61
[2017-07-24 04:00] VITALS: BP 119/58
[2017-07-24 08:00] VITALS: BP 108/65
[2017-07-24 09:08] LABS: HEMATOCRIT 22.6 % (42.0-52.0); HEMOGLOBIN 7.4 gm/dL (14.0-18.0); MCH 30.2 pg (26.0-34.0); MCHC 32.5 g/dL (28.0-37.0); MCV 92.9 fL (80.0-100.0); RBC 2.44 mil/uL (4.50-6.00); RDW 17.4 % (10.5-14.5); WBC 9.9 thou/uL (4.0-11.0)
[2017-07-24 11:20] VITALS: BP 127/68
[2017-07-24] MEDS ORDERED: CLOPIDOGREL75 MG PO (15:02)
[2017-07-24] MEDS ORDERED: LISINOPRIL5 MG PO (15:15)
== END 2017-07-24 20:09 | DRG 853 ==
LOC: HYPER 07:28 → 4N 16:21 → 3W 07-22 08:30
PROVIDERS: Family Medicine; Internal Medicine; Internal Medicine Endocrinology, Diabetes & Metabolism; Internal Medicine Nephrology; Nuclear Medicine Nuclear Cardiology
PROC: 047R34Z Dilation of Right Posterior Tibial Artery with Drug-eluting Intraluminal Device, Percutaneous Approach (ICD-10-PCS; 2017-07-20)
PROC: 047T34Z Dilation of Right Peroneal Artery with Drug-eluting Intraluminal Device, Percutaneous Approach (ICD-10-PCS; 2017-07-20)
PROC: 0Y6M0Z8 Detachment at Right Foot, Complete 5th Ray, Open Approach (ICD-10-PCS; principal; 2017-07-21)
PROC: 0Y6M0Z7 Detachment at Right Foot, Complete 4th Ray, Open Approach (ICD-10-PCS; principal; 2017-07-21)
PROC: B5181ZA Fluoroscopy of Superior Vena Cava using Low Osmolar Contrast, Guidance (ICD-10-PCS; 2017-07-23)
PROC: 02HV33Z Insertion of Infusion Device into Superior Vena Cava, Percutaneous Approach (ICD-10-PCS; 2017-07-23)
PROC: B548ZZA Ultrasonography of Superior Vena Cava, Guidance (ICD-10-PCS; 2017-07-23)
PROC: 5A09357 Assistance with Respiratory Ventilation, Less than 24 Consecutive Hours, Continuous Positive Airway Pressure (ICD-10-PCS; 2017-07-24)
PROC: 5A1D80Z Performance of Urinary Filtration, Prolonged Intermittent, 6-18 hours Per Day (ICD-10-PCS; 2017-07-24)
DX: A41.9 Sepsis, unspecified organism (principal); N18.6 End stage renal disease; J96.00 Acute respiratory failure, unspecified whether with hypoxia or hypercapnia; I21.4 Non-ST elevation (NSTEMI) myocardial infarction; I12.0 Hypertensive chronic kidney disease with stage 5 chronic kidney disease or end stage renal disease; E46 Unspecified protein-calorie malnutrition; M86.8X7 Other osteomyelitis, ankle and foot; J98.11 Atelectasis; E11.22 Type 2 diabetes mellitus with diabetic chronic kidney disease; I25.10 Atherosclerotic heart disease of native coronary artery without angina pectoris; E78.5 Hyperlipidemia, unspecified; E11.621 Type 2 diabetes mellitus with foot ulcer; L97.519 Non-pressure chronic ulcer of other part of right foot with unspecified severity; E03.9 Hypothyroidism, unspecified; E11.51 Type 2 diabetes mellitus with diabetic peripheral angiopathy without gangrene; D63.8 Anemia in other chronic diseases classified elsewhere; H40.9 Unspecified glaucoma; E11.42 Type 2 diabetes mellitus with diabetic polyneuropathy; M19.90 Unspecified osteoarthritis, unspecified site; E11.69 Type 2 diabetes mellitus with other specified complication; E87.70 Fluid overload, unspecified; Z68.37 Body mass index [BMI] 37.0-37.9, adult; Z88.6 Allergy status to analgesic agent; Z88.0 Allergy status to penicillin; Z99.2 Dependence on renal dialysis; Z83.3 Family history of diabetes mellitus; Z82.49 Family history of ischemic heart disease and other diseases of the circulatory system; Z85.46 Personal history of malignant neoplasm of prostate; Z95.1 Presence of aortocoronary bypass graft
CPT/HCPCS: 10779; 10790; 32100; 50010; 50101; 50386; 50951; 56525; 57091; 62110; 62850; 70005